=== PATIENT | female | born 1985 | race Caucasian/White ===

== ENCOUNTER 2020-12-15 01:50 | Emergency (ER) | payer SELFPAY ==
[2020-12-15] VITALS (8 sets, daily range): BP systolic 145; BP diastolic 90; PULSE 65–96; RESP 16–22; TEMP 36.7–37.2; O2SAT 95–98; BMI 23.6
--- NOTE | 2020-12-15 01:41 | ECG_ITS ---
APPROVED REPORT Exam: Resting ECG HR:98 bpm ECG Measurements Heart Rate 98 AXES NC 134 P 69 QRSd 76 QRS 88 QT 352 T 43 QTc 449 Conclusion Normal sinus rhythm Possible Left atrial enlargement Nonspecific ST abnormality Abnormal ECG Electronically signed by : Speedy Schrader MD 12/15/2020 20:25:24
--- NOTE | 2020-12-15 01:51 | [facility].EDGENADL ---
ED Disposition Clinical Impression: Alcohol intoxication Qualifiers: Complication of substance-induced condition: uncomplicated Qualified Code(s): F10.920 - Alcohol use, unspecified with intoxication, uncomplicated Disposition: Home, Self-Care Condition on Discharge: Good Additional Instructions: Follow-up with a primary care doctor. Return to the emergency department for any new or worsening symptoms. Referrals: Provider,MD Rhett [Primary Care Provider] - Star Driver MD [Staff Physician] - - Critical Care Critical Care Time: No Attestation: On , the high probability of a clinically significant, sudden or life threatening deterioration of the following system(s) required my full and direct attention, intervention and personal management. The time I documented below is in addition to time spent performing reported procedures but includes the following listed in this critical care notation. Medical Decision Making - Isak Inquiry Pt receiving controlled substance: No Vital Signs: 12/15/20 01:45 12/15/20 03:00 12/15/20 03:30 Temperature 98.0 F Temperature Source Oral Pulse Rate 68 71 Pulse Rate [Right] 96 H Respiratory Rate 16 18 Blood Pressure [Right Arm] 145/90 H Blood Pressure Mean [Right Arm] 108 02 Sat by Pulse Oximetry 97 97 95 Oxygen Delivery Method 12/15/20 04:00 12/15/20 04:30 12/15/20 05:00 Temperature Temperature Source Pulse Rate 65 68 72 Pulse Rate [Right] Respiratory Rate 18 Blood Pressure [Right Arm] Blood Pressure Mean [Right Arm] 02 Sat by Pulse Oximetry 97 98 96 Oxygen Delivery Method Room Air Room Air 12/15/20 05:15 Temperature Temperature Source Pulse Rate 67 Pulse Rate [Right] Respiratory Rate 16 Blood Pressure [Right Arm] Blood Pressure Mean [Right Arm] 02 Sat by Pulse Oximetry 96 Oxygen Delivery Method - Lab Data Lab Results 12/15/20 01:48: WBC 13.4 H, RBC 4.93, Hgb 11.5 L, Hct 38.9, MCV 79.0 L, MCH 23.4 L, MCHC 29.6 L, RDW 16.2, Plt Count 437 H, MPV 8.2, Neut % (Auto) 69.2, Lymph % (Auto) 24.1, Mcleod % (Auto) 5.0, Eos % (Auto) 0.4, Baso % (Auto) 1.3, Neut # (Auto) 9.3 H, Lymph # (Auto) 3.2, Mcleod # (Auto) 0.7, Eos # (Auto) 0.1, Baso # (Auto) 0.2 12/15/20 01:48: Sodium 141, Potassium 3.3 L, Chloride 107, Carbon Dioxide 22, Anion Gap 15.3 H, BUN 6 L, Creatinine 0.70, Estimated Creat Clear 129, Estimated GFR 95, Est GFR ( Amer) 115, Glucose 107 H, Calcium 9.1, Total Bilirubin 0.2, AST 26, ALT 13, Alkaline Phosphatase 61, Total Protein 8.1, Albumin 4.6, Globulin 3.5 H, Albumin/Globulin Ratio 1.3 12/15/20 01:48: SARS-CoV-2 (PCR) Not detected, Influenza A Untype (PCR) Not detected, Influenza Type B (PCR) Not detected 12/15/20 02:10: Urine Color Yellow, Urine Appearance Clear, Urine pH 6.0, Ur Specific [place] 1.015, Urine Protein Negative, Urine Glucose (UA) Negative, Urine Ketones Negative, Urine Blood Negative, Urine Nitrate Negative, Urine Bilirubin Negative, Urine Urobilinogen 0.2, Ur Leukocyte Esterase Negative, Ur Squamous Epith Cells 3-5, Amorphous Sediment Trace 12/15/20 02:10: Urine HCG, Qual Negative 12/15/20 02:10: Urine Opiates Screen Negative, Urine Methadone Screen Negative, Ur Barbituates Screen Negative, Ur Phencyclidine Scrn Negative, Ur Amphetamines Screen Negative, U Benzodiazepines Scrn Negative, Urine Cocaine Screen Negative, U Marijuana (THC) Screen Negative Result diagrams: 12/15/20 01:48 12/15/20 01:48 Orders (Tests/Meds): ED MEDICATIONS Generic Name Dose Route Start Last Admin Trade Name Freq PRN Reason Stop Dose Admin Lactated Ringer's 500 mls @ 999 mls/hr 12/15/20 02:00 12/15/20 01:53 Lactated Ringer's 1000 Ml Bag IV 12/15/20 02:30 999 mls/hr .Q31M JOSEPH Administration Discontinued Medications Generic Name Dose Route Start Last Admin Trade Name Freq PRN Reason Stop Dose Admin Ondansetron HCl 4 mg 12/15/20 01:50 12/15/20 01:53 Ondansetron 4mg/2ml Vial IV 12/15/20 01:5
[2020-12-15 02:01] LABS: Coronavirus 19, PCR Not Detected (NotDetected); Influenza A, PCR Not Detected (NotDetected); Influenza B, PCR Not Detected (NotDetected)
[2020-12-15 02:04] LABS: Basophils # 0.2 K/mm3 (0-0.2); Basophils % 1.3 % (0.1-2.0); Eosinophils # 0.1 K/mm3 (0.0-0.4); Eosinophils % 0.4 % (0.1-12.0); Hematocrit 38.9 % (37.0-47.0); Hemoglobin 11.5 g/dL (12.2-16.2); Lymphocytes # 3.2 K/mm3 (0.7-4.5); Lymphocytes % 24.1 % (10-50); Mean Corpuscular HGB Conc 29.6 g/dL (31.8-35.4); Mean Corpuscular Hemoglobin 23.4 pg (27.0-31.2); Mean Platelet Volume 8.2 fl (7.4-10.4); Monocytes # 0.7 K/mm3 (0.1-1.0); Neutrophils # 9.3 K/mm3 (1.8-7.8); Neutrophils % 69.2 % (37.0-80.0); Platelet Count 437 K/mm3 (142-424); Red Blood Count 4.93 M/mm3 (4.20-5.40); Red Cell Distribution Width 16.2 % (11.5-17.5); White Blood Count 13.4 K/mm3 (4.8-10.8)
[2020-12-15 02:11] LABS: Chloride 107 mmol/L (98-107); Potassium 3.3 mmoL/L (3.5-5.1); Sodium 141 mmol/L (136-145)
[2020-12-15 02:13] LABS: Blood Urea Nitrogen 6 mg/dl (7-17); Creatinine Clearance Estimated 129 mL/min (50-200); Estimated Glomerular Filt Rate 95 ml/min (>60); GFR (African American) 115 ML/MIN (>60)
[2020-12-15 02:14] LABS: Alanine Aminotransferase 13 U/L (12-78); Albumin Level 4.6 g/dl (3.5-5.0); Albumin/Globulin Ratio 1.3 (1.1-1.8); Alkaline Phosphatase 61 U/L (38-126); Anion Gap 15.3 mEq/L (5-15); Aspartate Amino Transferase 26 U/L (14-36); Bilirubin,Total 0.2 mg/dl (0.2-1.3); Calcium 9.1 mg/dl (8.4-10.2); Carbon Dioxide 22 mmol/L (22.0-30.0); Globulin 3.5 g/dL (1.3-3.2); Glucose 107 mg/dl (74-100); Total Protein,Serum 8.1 g/dl (6.3-8.2)
[2020-12-15 02:15] LABS: Microscopic, Urine URINE MICROSCOPIC (MICROSCOPIC)
[2020-12-15 02:19] LABS: Appearance,Urine CLEAR (Clear); Bilirubin,Urine Negative (Negative); Blood, Urine Negative (Negative); Color,Urine YELLOW (Yellow); Glucose,Urine (UA) Negative (Negative); Ketones,Urine Negative (Negative); Leukocyte Esterase,Urine Negative (Negative); Nitrate,Urine Negative (Negative); Protein,Urine Negative (Negative); Specific Gravity, Urine 1.015 (1.005-1.030); Urobilinogen,Urine 0.2 EU/dl (0.2)
--- NOTE | 2020-12-15 02:20 | XR_ITS ---
PROCEDURE INFORMATION: Exam: XR Chest Exam date and time: 12/15/2020 2:20 AM Age: 35 years old Clinical indication: Cough TECHNIQUE: Imaging protocol: XR of the chest. Views: 1 view. COMPARISON: No relevant prior studies available. FINDINGS: Lungs: No focal consolidation. Pleural spaces: No pleural effusion. No pneumothorax. Heart/Mediastinum: Unremarkable cardiomediastinal silhouette. Bones/joints: No acute osseous findings. IMPRESSION: No focal consolidation.
[2020-12-15 02:21] LABS: Amorphous Sediment,Urine Trace /lpf; Urine Pregnancy, HCG Qual. Negative (Negative)
[2020-12-15 02:29] LABS: Amphetamine/Metha Screen,Urine Negative ng/ml (<1000); Barbiturates Screen,Urine Negative ng/ml (<200)
[2020-12-15 02:30] LABS: Benzodiazepines Screen,Urine Negative ng/ml (<200); Cannabinoid Screen,Urine Negative ng/ml (<50)
[2020-12-15 02:31] LABS: Cocaine Screen,Urine Negative ng/ml (<300)
[2020-12-15 02:32] LABS: Methadone Screen,Urine Negative ng/ml (<300); Opiate Screen,Urine Negative ng/ml (<300)
[2020-12-15 02:33] LABS: Phencyclidine Screen,Urine Negative ng/ml (<25)
== END 2020-12-15 07:10 | disposition home or self-care (01) ==
PROVIDERS: Emergency Provider Emergency Medicine
DX: F10.920 Alcohol use, unspecified with intoxication, uncomplicated (principal); M79.18 Myalgia, other site; Z20.822 Contact with and (suspected) exposure to COVID-19; F17.210 Nicotine dependence, cigarettes, uncomplicated
CPT/HCPCS: 71045; 80053; 80305; 81001; 81025; 85025; 93005; 96365; 96375; 99282; C9803; J2405; U0003; U0005